=== PATIENT | female | born 1950 | race Caucasian/White ===

== ENCOUNTER 2019-07-15 07:45 | Inpatient (IN) ==
[2019-07-11 16:46] LABS: Basophils # (Auto) 0.04 K/mcL (0.00-0.30); Basophils % (Auto) 0.4 % (0.0-2.0); Eosinophils # (Auto) 0.47 K/mcL (0.00-0.70); Eosinophils % (Auto) 4.6 % (0.0-7.0); Granulocytes % (Auto) 72.7 % (38.0-78.0); Hematocrit 30.8 % (34.1-44.9); Hemoglobin 8.8 g/dL (11.2-15.7); Lymphocytes % (Auto) 13.7 % (15.5-49.0); Mean Cell Volume 79.6 fL (80.0-100.0); Mean Corpuscular HGB Conc 28.6 g/dL (31.0-36.0); Mean Platelet Volume 8.7 fL (7.4-10.4); Monocytes # (Auto) 0.88 K/mcL (0.10-0.90); Monocytes % (Auto) 8.6 % (1.0-12.0); Platelet Count 594 K/mcL (140-440); RBC 3.87 M/mcL (3.59-5.38); Red Cell Distribution Width 17.7 % (11.5-14.5); WBC 10.2 K/mcL (4.50-11.00)
[2019-07-11 17:03] LABS: ALT/SGPT 7 U/l (0-40); AST/SGOT 30 U/l (0-37); Albumin 3.4 gm/dL (3.2-5.2); Albumin/Globulin Ratio 0.9 (1.0-2.3); Alkaline Phosphatase 88 U/L (39-117); Bilirubin,Total 0.2 mg/dL (0.0-1.0); Blood Urea Nitrogen 23 mg/dl (8-23); C-Reactive Protein 1.9 mg/dl (0.0-0.8); Calcium 9.3 mg/dl (8.6-10.4); Carbon Dioxide 25 mmol/L (22-30); Chloride 99 mmol/L (96-108); Globulin 3.7 gm/dL (2.2-3.7); Glomerular Filtration Rate 106; Glucose 89 mg/dL (70-105)
[~2019-07-15 07:45] MED LIST: IPRATROPIUM/ALBUTEROL 3 ML AMPUL.NEB NEB PRN; SCOPOLAMINE 1 PATCH PATCH TOPICAL PRN; ceFAZolin 2 GM in DEXTROSE 5% IN WATER 50 ML IV SCH
[2019-07-15] MEDS ORDERED: KETAMINE 100 MG/ML ML IV ONE (09:05)
[2019-07-15] MEDS ORDERED: LIDOCAINE HCL/PF 100 MG/5 ML SYRINGE IV ONE (09:05)
[2019-07-15] MEDS ORDERED: DEXAMETHASONE 10 MG/ML VIAL IV ONE (09:05)
[2019-07-15] MEDS ORDERED: MIDAZOLAM 2 MG/2 ML VIAL IV ONE (09:05)
[2019-07-15] MEDS ORDERED: PROPOFOL 200 MG/20 ML VIAL IV ONE (09:05)
[2019-07-15] MEDS ORDERED: ONDANSETRON 4 MG/2 ML VIAL IV ONE (09:05)
[2019-07-15] MEDS ORDERED: fentaNYL 100 MCG/2 ML VIAL IV ONE (09:05)
[2019-07-15] MEDS ORDERED: GLYCOPYRROLATE 0.2 MG/ML VIAL IV ONE (09:05)
[2019-07-15] MEDS ORDERED: BACITRACIN TOPICAL OINT 15 GM TUBE TOPICAL ONE (10:04)
[2019-07-15] MEDS ORDERED: IPRATROPIUM/ALBUTEROL 3 ML AMPUL.NEB NEB PRN (10:22)
[2019-07-15] MEDS ORDERED: fentaNYL 100 MCG/2 ML VIAL IV PRN (10:22)
[2019-07-15] MEDS ORDERED: ONDANSETRON 4 MG/2 ML VIAL IV PRN ×2 (10:22→16:53)
[2019-07-15] MEDS ORDERED: MEPERIDINE 25 MG/ML SYRINGE IV PRN (10:22)
[2019-07-15] MEDS ORDERED: ACETAMINOPHEN 750 MG/75 ML BOTTLE IV ONE (10:28)
[2019-07-15] MEDS ORDERED: LACTATED RINGERS 1,000 ML IV SCH (10:30)
--- NOTE | 2019-07-15 10:44 | Brief Operative Note ---
Date of procedure: 07/15/19 Pre-op diagnosis: Grade IV sacral ulcer Post-op diagnosis: same Procedure: Excision grade IV pressure ulcer with resection of skin, bone, fascia Bilateral gluteus flap closure of sacral ulcer Grafts/Implants: No Anesthesia: GETA Findings: Grade IV sacral ulcer down to sacral bone. No gross infection Complications: none Surgeon: Go Foster Estimated blood loss (cc): 100 Specimens Removed/Pathology: other (Culture of sacral wound post irrigation sent to micro) Condition: stable Disposition: PACU
[2019-07-15] MEDS ORDERED: METHYLENE BLUE 50 MG/10 ML AMPUL INJ ONE (10:47)
[2019-07-15] MEDS: MUPIROCIN OINT 2% 22GM NARES SCH ×2 (14:40→21:34)
[2019-07-15] MEDS ORDERED: HYDROcodone/APAP 5/325MG TABLET PO PRN (16:53)
[2019-07-15] MEDS ORDERED: HYDROmorphone 2 MG/ML VIAL IV PRN (16:53)
[2019-07-15] MEDS ORDERED: ACETAMINOPHEN 650 MG/65 ML BOTTLE IV PRN (16:53)
[2019-07-15] MEDS ORDERED: ACETAMINOPHEN 325 MG TABLET PO PRN (16:53)
[2019-07-15] MEDS ORDERED: ONDANSETRON 4 MG ODT TABLET SL PRN (16:53)
[2019-07-15] MEDS ORDERED: guaiFENesin/CODEINE 10 ML UDC PO PRN (16:53)
[2019-07-15] MEDS ORDERED: POLYETHYLENE GLYCOL 3350 17 GM PACKET PO PRN (16:53)
[2019-07-15] MEDS ORDERED: MELATONIN 3 MG TABLET PO PRN (16:53)
--- NOTE | 2019-07-15 16:56 | Internal Medicine Consult Note ---
Medical - CN: [facility] - Data of Consult Consult date: 07/15/19 Primary Care Provider: Miguel Chu Family Provider: Elham - Consult Narrative Reason for consult: Management of medical issues History of present illness: Ms. Lewis is a 69 year old F with a history of T6 paraplegia with a blood grade 4 sacral pressure ulcer and underwent excision of sacral pressure ulcer with resection of skin and subcutaneous fat fascia and bone. Procedure performed by Dr. Ghanshyam Foster. Postprocedure hospitalist service was consulted for management of medical issues and antibiotic selection. Intraoperative cultures were sent. She was positive for MRSA in naris and was started on cefazolin preop. Patient was evaluated in the postoperative phase in stable state. She is alert oriented denies any active distress or pain. She endorses to injury with subsequent paraplegia since 1983. She developed decubitus ulceration around 2009 and has intermittently gotten worse requiring drainage and wound care. She normally follows up with a primary care physician Dr. Lizarraga at [place]. Patient has an extensive family who lives close by. She has adequate social support. Patient denies fever, chills, chest pain, headache, photophobia. Review of systems A 10 point review system was performed and is negative except was cussed above CC: Go Foster Medical - CN: [facility] Medical history: T6 paraplegia Recurrent decubitus ulcers Medical - CN: Meds Home Medications Medication Instructions Recorded Confirmed Type Calcium Carbonate/Vitamin D3 1 each PO DAILY 07/11/19 07/11/19 History [Calcium 600-Vit D3 400 Tablet] Calcium Polycarbophil [Fibercon] 1 tab PO DAILY 07/11/19 07/11/19 History Cranberry Fruit Extract [Cranberry] 200 mg PO QID 07/11/19 07/11/19 History Methenamine Hippurate [Hiprex] 1 gm PO QID 07/11/19 07/11/19 History Multivitamin,Therapeutic [Thera] 1 each PO DAILY 07/11/19 07/11/19 History Oxybutynin Chloride [Ditropan] 5 mg PO QID 07/11/19 07/11/19 History Macrobid 100 mg PO BID 07/15/19 07/15/19 History Allergies Allergy/AdvReac Type Severity Reaction Status Date / Time egg [EGG] Allergy Unknown Unknown Verified 07/15/19 08:34 Medical - CN: Exam - Constitutional Vitals: Temp Pulse Resp BP Pulse Ox 97.7 F 84 18 90/54 98 07/15/19 16:27 07/15/19 16:27 07/15/19 16:27 07/15/19 16:27 07/15/19 16:27 General appearance: no acute distress Exam: Alert oriented head normocephalic Oral cavity dry No ear nose discharge Eye movement symmetrical No lymphadenopathy S1-S2 regular rhythm, diminished breath sounds bases Abdomen soft nontender Lower extremity no sinus clubbing no joint swelling Decubitus postoperative dressing Skin no suspicious lesion Psych alert cooperative Neuro baseline paraplegia T6 with lower extremity motor sensory deficit Medical - CN: Result - Labs CBC & Chem 7: 07/16/19 05:45 07/16/19 05:45 Medical - CN: A/P - Narrative A/P Narrative: * Sacral decubitus ulcer stage IV status post resection of skin bone fascia along with bilateral gluteus flap closure of sacral ulcer-managed by surgery. Postoperative care as per surgery * Cellulitis-continue antibiotic coverage including vancomycin/Zosyn and de- escalate based on intraoperative cultures * Full code * Prophylaxis heparin Plan * For antibiotic coverage * Postoperative care per orthopedics * De-escalate antibiotics based on culture sensitivities * Frequent turning/wound care/nutrition support * Physical therapy * Case management coordinate SNF transfer for continued postoperative care/wound management
[2019-07-15] MEDS ORDERED: VANCOMYCIN PER PHARMACY IV SCH (17:00)
--- NOTE | 2019-07-15 17:03 | Operative Note ---
DATE OF OPERATION: 07/15/2019 PREOPERATIVE DIAGNOSIS: Grade IV sacral pressure ulcer. POSTOPERATIVE DIAGNOSIS: Grade IV sacral pressure ulcer. PROCEDURE PERFORMED: Excision of a sacral pressure ulcer with resection of skin, subcutaneous fat, fascia and bone. Additional procedure is elevation of bilateral gluteus muscular flaps for closure of soft tissue over the sacrum. SURGEON: Go Govea M.D. EARLY CHILDHOOD TEACHER ASSISTANT: EMILIE Tee student. ANESTHESIA: General. ESTIMATED BLOOD LOSS: 100 mL. COMPLICATIONS: None. DRAINS: Two 7 mm KIRSTEN drains were placed. SPECIMENS: Post-irrigation wound culture was obtained of the sacral wound and bone. INDICATIONS: The patient is an otherwise healthy female who had a very large right ischial pressure sore, which was treated surgically just under 3 months ago. She had a smaller one over the sacral area which we elected to excise and close, and it looked like it was getting deeper. Patient healed uneventfully from the ischial sore but was having a multitude of problems with care of the sacral wound. The wound never fully healed. It continued to break down further and finally eroded down to the sacral bone. We are looking at changing pressure surfaces for the patient at home. We are going to plan to reclose this wound and get her healed before infection and other comorbidities set in. Operative treatment is indicated. DESCRIPTION OF PROCEDURE: The patient was identified in the holding area where the planned procedure was discussed with her. She wished to proceed and consented freely, and 2 grams of Ancef were given IV. She was brought into the operating room. General anesthesia was induced with an LMA tube, and she was placed somewhat prone, slightly left lateral on the operating table. Her dressings were removed and the entire buttock and perineal area were prepped with Betadine and draped out sterilely. The ulcer was noted to be about a 2.5 to 3 cm in width and about 4 cm in length. The entire ulcer bed was painted with isosulfan blue dye, and incision lines were drawn around the entire ulcer to completely remove it. Incision was thus made through the skin and the subcutaneous fat. Electrocautery was used to remove the entire ulcer opening. The base of the wound was extensively curetted out with uterine curettes and all obvious blue stain was removed using rongeurs. The wounds were irrigated out with a couple liters of sterile saline irrigation and the final check for the adequacy of resection was performed. The last 1000 mL of irrigation was used and then a post-irrigation culture of the bone was taken with a clean rongeur and sent off for microbiology. The wounds were quite clean. There was good hemostasis. Rather than close the wounds primarily, I elected to elevate the right gluteus jeremiah muscle towards the midline. This was freed up from the overlying skin and dissected using electrocautery and advanced towards the midline. The advancement was just barely over the midline. I elected to elevate the opposite side as well since I did not have enough coverage for tension-free muscle closure over the exposed sacral bone. Having been content with the muscle advancement and adequacy of closure, a final check for hemostasis was made. A drain was placed into the deep space wound exiting via separate stab incision on the right hip. The drain was secured with 3-0 nylon and then the muscle repair was performed approximating the right and left gluteus muscle flaps. Having been content with complete muscle coverage over the sacral bone, the skin was then closed using multiple interrupted dermal sutures of 0 Monocryl. Prior to complete closure, a second drain was placed between the muscle and the skin space. This drain was also secured with 3-0 nylon. The skin itself was then closed with multiple horizontal mattress and simple sutures of 3-0 nylon with multiple surgical clips on the skin. The wounds were then washed free of debris. Bacitracin was applied. Bacitracin and a drain sponge were placed over the drain sites. The patient was then rolled supine onto a hospital bed. She was extubated and awakened in the operating room and taken over to the recovery room in stable condition. There were no complications. Sponge and needle counts were correct. The patient tolerated the procedure well. AMRY:juany Job ID: [id number] Doc ID: [id number] Go Foster MD
[2019-07-15] MEDS: OXYBUTYNIN CHLORIDE 5 MG TABLET PO SCH ×2 (17:45→21:04)
[2019-07-15] MEDS: PIPERACILLIN SODIUM/TAZOBACTAM 3.375 GM in DEXTROSE 5% IN WATER 50 ML IV SCH ×2 (18:05→23:40)
[2019-07-15] MEDS: VANCOMYCIN 750 MG in 0.9 % SODIUM CHLORIDE 250 ML IV SCH (18:24)
[2019-07-15] MEDS: SENNOSIDES/DOCUSATE SODIUM 1 TAB TABLET PO SCH (21:04)
[2019-07-15] MEDS: DOCUSATE SODIUM 100 MG CAPSULE PO SCH (21:04)
[2019-07-15] MEDS: 0.9 % SODIUM CHLORIDE 10 ML SYRINGE IV SCH (21:05)
[2019-07-15] MEDS: HEPARIN 5,000 UNIT/ML VIAL SQ SCH (21:06)
[2019-07-15] MEDS: BACITRACIN TOPICAL OINT 15 GM TUBE TOPICAL SCH (21:34)
[2019-07-16] MEDS: 0.9 % SODIUM CHLORIDE 10 ML SYRINGE IV SCH ×3 (06:04→20:55)
[2019-07-16] MEDS: PIPERACILLIN SODIUM/TAZOBACTAM 3.375 GM in DEXTROSE 5% IN WATER 50 ML IV SCH ×4 (06:05→23:59)
[2019-07-16 06:47] LABS: Hematocrit 24.5 % (34.1-44.9); Hemoglobin 7.3 g/dL (11.2-15.7); Mean Cell Volume 77.3 fL (80.0-100.0); Mean Corpuscular HGB Conc 29.8 g/dL (31.0-36.0); Mean Platelet Volume 8.5 fL (7.4-10.4); Platelet Count 417 K/mcL (140-440); RBC 3.17 M/mcL (3.59-5.38); Red Cell Distribution Width 17.6 % (11.5-14.5); WBC 10.2 K/mcL (4.50-11.00)
[2019-07-16 07:19] LABS: Bilirubin,Direct < 0.2 mg/dL (0.0-0.3); Bilirubin,Total < 0.2 mg/dL (0.0-1.0); Chloride 104 mmol/L (96-108)
[2019-07-16 07:22] LABS: ALT/SGPT < 5 U/l (0-40); AST/SGOT 25 U/l (0-37); Albumin 2.9 gm/dL (3.2-5.2); Albumin/Globulin Ratio 0.8 (1.0-2.3); Alkaline Phosphatase 74 U/L (39-117); Blood Urea Nitrogen 19 mg/dl (8-23); Calcium 8.5 mg/dl (8.6-10.4); Carbon Dioxide 24 mmol/L (22-30); Globulin 3.5 gm/dL (2.2-3.7); Glomerular Filtration Rate 106; Glucose 108 mg/dL (70-105); Lactate Dehydrogenase 159 U/L (94-250); Phosphorous 3.2 mg/dL (2.7-4.5); Triglycerides 110 mg/dl (<150); Uric Acid 1.8 mg/dL (2.5-8.0)
[2019-07-16] MEDS: MUPIROCIN OINT 2% 22GM NARES SCH ×2 (08:21→20:55)
[2019-07-16 09:08] LABS: Anisocytosis 1+ (NONE SEEN); Hypochromasia 2+ (NONE SEEN); Lymphocytes % 14 % (15-49); Monocytes % (Manual) 7 % (1-12); Platelet Estimate INCREASED (NORMAL); RBC Fragments RARE (NONE SEEN); RBC Morphology ABNORM (NORMAL); Segmented Neutrophils % 79 % (38-78)
[2019-07-16] MEDS: OXYBUTYNIN CHLORIDE 5 MG TABLET PO SCH ×4 (09:21→20:54)
[2019-07-16] MEDS: HEPARIN 5,000 UNIT/ML VIAL SQ SCH ×2 (09:21→20:55)
[2019-07-16] MEDS: DOCUSATE SODIUM 100 MG CAPSULE PO SCH ×2 (09:21→20:54)
[2019-07-16] MEDS: MULTIVIT,THER IRON,CA,FA & MIN 1 TABLET PO SCH (09:21)
[2019-07-16] MEDS: VANCOMYCIN 750 MG in 0.9 % SODIUM CHLORIDE 250 ML IV SCH (09:22)
[2019-07-16] MEDS: BACITRACIN TOPICAL OINT 15 GM TUBE TOPICAL SCH ×2 (09:22→20:55)
--- NOTE | 2019-07-16 17:21 | Internal Med Progress Note ---
Medical - PN: Subj Patient information: Note initiated : 07/16/19 at 5:19 pm Service Date, if different from initiated Date: [] Patient: Juli Lewis 69 y/o F admitted on for Debride, Close Grade IV Sacral Pressure Ulcer,. Chief Complaint: [] Interval history: Ms. Lewis is a 69 year old F with a history of T6 paraplegia with a blood grade 4 sacral pressure ulcer and underwent excision of sacral pressure ulcer with resection of skin and subcutaneous fat fascia and bone. Procedure performed by Dr. Ghanshyam Foster. Postprocedure hospitalist service was consulted for management of medical issues and antibiotic selection. Intraoperative cultures were sent. She was positive for MRSA in naris and was started on cefazolin preop. Patient was evaluated in the postoperative phase in stable state. She is alert oriented denies any active distress or pain. She endorses to injury with subsequent paraplegia since 1983. She developed decubitus ulceration around 2009 and has intermittently gotten worse requiring drainage and wound care. She normally follows up with a primary care physician Dr. Lizarraga at [place]. Patient has an extensive family who lives close by. She has adequate social support. Patient denies fever, chills, chest pain, headache, photophobia. 07/16-patient doing well. Postop day 1. Doing well. No pain fever or concerns per staff. Cultures negative so far. De-escalate antibiotics in the next 24 hours. Continue PT OT/high-protein calorie supplements. - Constitutional Vitals: Vital Signs Temp Pulse Resp BP Pulse Ox 98.9 F 72 16 115/65 95 07/16/19 15:53 07/16/19 15:53 07/16/19 15:53 07/16/19 15:53 07/16/19 15:53 Period Temp Pulse Resp BP Sys/Merrill Pulse Ox Last 24 Hr 97.6 F-99 F 72-90 16-18 78-115/47-65 95-99 Intake and Output 07/16/19 07/16/19 07/16/19 05:59 13:59 21:59 Intake Total 350 1130 Output Total 337 317 Balance 13 1130 -317 Intake & Output: Intake & Output 07/16/19 07/16/19 07/16/19 05:59 13:59 21:59 Intake Total 350 1130 Output Total 337 317 Balance 13 1130 -317 Intake: IV 50 350 Zosyn 3.375 gm In Dextrose 5% 50 100 in Water 50 ml @ 100 mls/hr IV Q6H [facility] Rx#:[id number] Vancomycin 750 mg In Sodium 250 Chloride 0.9% 250 ml @ 250 mls/ hr IV Q24H [facility] Rx#:[id number] Oral 300 780 Output: Drainage 12 17 KIRSTEN A 2 2 KIRSTEN B 10 15 Urine Catheter Amount 325 300 Other: Meal Lunch Percent of Meal Consumed 100% Feeding Ability Independent Urine Appearance Clear Uretheral (Amaya) Clear Urine Color Dark Yellow Uretheral (Amaya) Pale Urine Odor Normal General appearance: no acute distress Exam: Alert oriented Nonlabored breathing No anxiety Nondistended abdomen Hypo/anesthesia T6 below Medical - PN: Obj Da - Labs CBC & Chem 7: 07/16/19 05:45 07/16/19 05:45 Labs: Abnormal Lab Results 07/16/19 07/16/19 05:45 05:45 RBC 3.17 L Hgb 7.3 L Hct 24.5 L MCV 77.3 L MCH 23.0 L MCHC 29.8 L RDW 17.6 H Seg Neutrophils % 79 H Lymphocytes % 14 L RBC Morphology Abnorm A Hypochromasia 2+ A Anisocytosis 1+ A RBC Fragments Rare A Creatinine 0.4 L Glucose 108 H Uric Acid 1.8 L Calcium 8.5 L Albumin 2.9 L Albumin/Globulin Ratio 0.8 L Meds: Medications Acetaminophen (Tylenol) 650 mg PO Q4-6HP PRN; Protocol PRN Reason: Per Pain Protocol/Fever > 101 Hydrocodone Bitart/Acetaminophen ([place] 5/325mg) 0 tab PO Q4HP PRN; Protocol PRN Reason: Per Pain Protocol Bacitracin (Bacitracin Topical Oint) 1 dose TOPICAL BID [facility] Last Admin: 07/16/19 09:22 Dose: 1 dose Documented by: Bisacodyl (Dulcolax) 10 mg [place] Q2-3DAYS PRN PRN Reason: Constipation Docusate Sodium (Colace) 100 mg PO BID [facility] Last Admin: 07/16/19 09:21 Dose: 100 mg Documented by: Guaifenesin/Codeine Phosphate (Robitussin Ac) 10 ml PO Q4HP PRN PRN Reason: Cough Heparin Sodium (Porcine) (Heparin) 5,000 unit SQ Q12 [facility] Last Admin: 07/16/19 09:21 Dose: 5,000 unit Documented by: Hydromorphone HCl (Dilaudid) 0 mg IV Q4HP PRN; Protocol PRN Reason: Per Pain Protocol Acetaminophen (Ofirmev) 650 mg in 65 mls @ 130 mls/hr IV Q6HP PRN; Protocol PRN Reason: Per Pain Protocol/Fever > 101 Piperacillin Sod/Tazobactam (Sod 3.375 gm/ Dextrose) 50 mls @ 100 mls/hr IV Q6H [facility]; Protocol Last Infusion: 07/16/19 13:01 Dose: Infused Documented by: Vancomycin HCl 750 mg/ Sodium (Chloride) 250 mls @ 250 mls/hr IV Q24H [facility] Last Infusion: 07/16/19 10:22 Dose: Infused Documented by: Iron Carb/Multivit/[place]/Folic Acid (Multivitamin W/Minerals) 1 tab PO DAILY [facility] Last Admin: 07/16/19 09:21 Dose: 1 tab Documented by: Melatonin (Melatonin 3mg Tablet) 3 mg PO HSP PRN PRN Reason: Insomnia Mupirocin (Bactroban Oint 2%) 1 dose NARES BID [facility] Last Admin: 07/16/19 08:21 Dose: 1 dose Documented by: Ondansetron HCl (Zofran Odt) 4 mg SL Q4-6HP PRN; Protocol PRN Reason: Nausea And Vomiting Ondansetron HCl (Zofran) 4 mg IV Q4-6HP PRN; Protocol PRN Reason: Nausea And Vomiting Oxybutynin Chloride (Ditropan) 5 mg PO QID [facility] Last Admin: 07/16/19 12:31 Dose: 5 mg Documented by: Methenamine Hippurate [Hiprex] 1 Gm Tab 1 dose PO QID [facility] Last Admin: 07/16/19 13:32 Dose: 1 dose Documented by: Polyethylene Glycol (Miralax) 17 gm PO DAILYP PRN PRN Reason: Constipation Scopolamine (Transderm-Scop) 1 patch TOPICAL PREOP PRN PRN Reason: Nausea And Vomiting Senna/Docusate Sodium (Senna Plus Tablet) 1 tab PO HS [facility] Last Admin: 07/15/19 21:04 Dose: 1 tab Documented by: Sodium Chloride (Saline Flush) 10 ml IV Q8 [facility] Last Admin: 07/16/19 13:39 Dose: 10 ml Documented by: Vancomycin HCl (Vancomycin Per Pharmacy) 1 order IV UD [facility]; Protocol Medical - PN: A/P - Time Spent With Patient Total time spent is greater than 50% in coordination of care (as documented) at patient's floor/unit and/or counseling patient: 15 - 24 minutes - Narrative A/P Narrative: * Sacral decubitus ulcer stage IV status post resection of skin bone fascia along with bilateral gluteus flap closure of sacral ulcer-postop day 1. Managed by surgery. Postoperative care as per surgery * [id number] vancomycin/Zosyn based on cultures in 24 hours * Full code * Prophylaxis heparin Plan * De-escalate antibiotics based on culture sensitivities in 24-hour * Postop care as per surgery * Frequent turning/wound care/nutrition support * Continue physical therapy * Case management coordinate SNF transfer for continued postoperative care/wound management
[2019-07-16] MEDS: SENNOSIDES/DOCUSATE SODIUM 1 TAB TABLET PO SCH (20:54)
[2019-07-17] MEDS: BISACODYL 10 MG SUPP.RECT PR PRN (05:36)
[2019-07-17] MEDS: 0.9 % SODIUM CHLORIDE 10 ML SYRINGE IV SCH ×3 (05:36→21:47)
[2019-07-17] MEDS: PIPERACILLIN SODIUM/TAZOBACTAM 3.375 GM in DEXTROSE 5% IN WATER 50 ML IV SCH (05:36)
[2019-07-17 07:30] LABS: Hemoglobin 7.4 g/dL (11.2-15.7); Mean Cell Volume 77.4 fL (80.0-100.0); Mean Corpuscular HGB Conc 29.6 g/dL (31.0-36.0); Platelet Count 452 K/mcL (140-440); RBC 3.23 M/mcL (3.59-5.38); Red Cell Distribution Width 17.7 % (11.5-14.5); WBC 10.1 K/mcL (4.50-11.00)
[2019-07-17 07:46] LABS: Bilirubin,Direct < 0.2 mg/dL (0.0-0.3); Bilirubin,Total < 0.2 mg/dL (0.0-1.0); Chloride 104 mmol/L (96-108)
[2019-07-17 07:50] LABS: ALT/SGPT < 5 U/l (0-40); AST/SGOT 27 U/l (0-37); Albumin 2.8 gm/dL (3.2-5.2); Albumin/Globulin Ratio 0.9 (1.0-2.3); Alkaline Phosphatase 72 U/L (39-117); Blood Urea Nitrogen 19 mg/dl (8-23); Calcium 8.1 mg/dl (8.6-10.4); Carbon Dioxide 24 mmol/L (22-30); Globulin 3.2 gm/dL (2.2-3.7); Glomerular Filtration Rate 106; Glucose 93 mg/dL (70-105); Lactate Dehydrogenase 183 U/L (94-250); Phosphorous 3.3 mg/dL (2.7-4.5); Triglycerides 136 mg/dl (<150); Uric Acid 1.5 mg/dL (2.5-8.0)
[2019-07-17 08:17] LABS: Anisocytosis 1+ (NONE SEEN); Eosinophils % (Manual) 7 % (0-7); Lymphocytes % 6 % (15-49); Microcytosis 1+ (NONE SEEN); Monocytes % (Manual) 8 % (1-12); Myelocytes % 1 % (0-0); Platelet Estimate INCREASED (NORMAL); RBC Morphology ABNORM (NORMAL); Segmented Neutrophils % 78 % (38-78)
[2019-07-17] MEDS: BACITRACIN TOPICAL OINT 15 GM TUBE TOPICAL SCH ×2 (08:21→21:45)
[2019-07-17] MEDS: MUPIROCIN OINT 2% 22GM NARES SCH ×2 (08:21→21:48)
[2019-07-17] MEDS: OXYBUTYNIN CHLORIDE 5 MG TABLET PO SCH ×4 (08:59→21:45)
[2019-07-17] MEDS: DOCUSATE SODIUM 100 MG CAPSULE PO SCH ×2 (08:59→21:45)
[2019-07-17] MEDS: MULTIVIT,THER IRON,CA,FA & MIN 1 TABLET PO SCH (08:59)
[2019-07-17] MEDS: HEPARIN 5,000 UNIT/ML VIAL SQ SCH ×2 (09:00→21:46)
[2019-07-17] MEDS: VANCOMYCIN 750 MG in 0.9 % SODIUM CHLORIDE 250 ML IV SCH (10:46)
--- NOTE | 2019-07-17 11:09 | Progress Note ---
DATE OF VISIT 07/16/2019 HISTORY: The patient is postop day #1, status post closure of complex sacral wound with exposed sacral bone. She is doing very well. She has no problems with pain control. She has no spasms. PHYSICAL EXAM: VITAL SIGNS: Stable. She is currently afebrile. Temperature is 98.8. SACRUM: Incision is clean and dry. There is no evidence of infection. There is less redness around the incisional site since being placed being placed on the low air loss bed as right after surgery she was placed on a hospital bed. Her drains are functioning. URINE OUTPUT: She put out 37 mL in the last 24 hours. LABORATORY DATA: Hemoglobin and hematocrit is a little low; hemoglobin is 7.3 from a preop of 8.8. She is not actively bleeding. Her cultures are no growth and the Gram stain demonstrated no obvious organisms. IMPRESSION: Doing well postoperative day #1. PLAN: We will continue to monitor her skin incision and flap. We will work on her nutrition and follow up her cultures, and once the cultures are negative, we can switch her off IV antibiotics and either put on oral antibiotics for possibly completely discontinue them. She was given a chance to ask questions. I will plan to see her back tomorrow. MARY:daniella Job ID: [id number] Doc ID: [id number] Go Foster MD
[2019-07-17] MEDS ORDERED: MENTHOL/ZINC OXIDE OINT.TOP 113 GM TOPICAL PRN (12:43)
--- NOTE | 2019-07-17 18:34 | Internal Med Progress Note ---
Medical - PN: Subj Patient information: Note initiated : 07/17/19 at 6:30 pm Service Date, if different from initiated Date: [] Patient: Juli Leiws 69 y/o F admitted on for Debride, Close Grade IV Sacral Pressure Ulcer,. Chief Complaint: [] Interval history: Ms. Lewis is a 69 year old F with a history of T6 paraplegia with a blood grade 4 sacral pressure ulcer and underwent excision of sacral pressure ulcer with resection of skin and subcutaneous fat fascia and bone. Procedure performed by Dr. Ghanshyam Foster. Postprocedure hospitalist service was consulted for management of medical issues and antibiotic selection. Intraoperative cultures were sent. She was positive for MRSA in naris and was started on cefazolin preop. Patient was evaluated in the postoperative phase in stable state. She is alert oriented denies any active distress or pain. She endorses to injury with subsequent paraplegia since 1983. She developed decubitus ulceration around 2009 and has intermittently gotten worse requiring drainage and wound care. She normally follows up with a primary care physician Dr. Lizarraga at [place]. Patient has an extensive family who lives close by. She has adequate social support. Patient denies fever, chills, chest pain, headache, photophobia. 07/16-patient doing well. Postop day 1. Doing well. No pain fever or concerns per staff. Cultures negative so far. De-escalate antibiotics in the next 24 hours. Continue PT OT/high-protein calorie supplements. 07/17-patient doing well. Ongoing wound care. Developed rash on extensor aspect of forearm and arm bilaterally. Antibiotics discontinued as no evidence of infection and negative wound cultures. Continue PT OT/wound care. Discharge planning per case management likely in 24 hours to SNF. No overnight fever chills. Amaya draining clear urine. - Constitutional Vitals: Vital Signs Temp Pulse Resp BP Pulse Ox 98.0 F 87 16 96/43 97 07/17/19 16:00 07/17/19 16:00 07/17/19 16:00 07/17/19 16:00 07/17/19 16:00 Period Temp Pulse Resp BP Sys/Merrill Pulse Ox Last 24 Hr 98.0 F-99.0 F 73-94 16-24 77-96/43-58 95-97 Intake and Output 07/17/19 07/17/19 07/17/19 05:59 13:59 21:59 Intake Total 137 565 2028 Output Total 985 520 Balance -460 410 680 Intake & Output: Intake & Output 07/17/19 07/17/19 07/17/19 05:59 13:59 21:59 Intake Total 367 288 0874 Output Total 985 520 Balance -460 410 680 Intake: IV 50 50 Zosyn 3.375 gm In Dextrose 5% 50 50 in Water 50 ml @ 100 mls/hr IV Q6H [facility] Rx#:[id number] Oral 528 130 0480 Output: Drainage 20 KIRSTEN A 5 KIRSTEN B 15 Drainage 10 KIRSTEN A 1 KIRSTEN B 9 Urine Catheter Amount 975 500 Other: Meal Breakfast Dinner Percent of Meal Consumed 100% 75% Feeding Ability Independent Independent Urine Appearance Clear Sediment Urine Color Bright Yellow Pale Urine Odor Normal Normal Stool Size Small Stool Color Brown Stool Consistency Dry and Hard Hilda # Voids 1 # Bowel Movements 1 General appearance: no acute distress Exam: Alert oriented Nonlabored breathing Raised erythematous urticarial rash on the extensor aspect of left forearm and arm. No anxiety Medical - PN: Obj Da - Labs CBC & Chem 7: 07/17/19 05:35 07/17/19 05:35 Labs: Abnormal Lab Results 07/17/19 07/17/19 07/16/19 05:35 05:35 05:45 RBC 3.23 L Hgb 7.4 L Hct 25.0 L MCV 77.4 L MCH 22.9 L MCHC 29.6 L RDW 17.7 H Plt Count 452 H Seg Neutrophils % Lymphocytes % 6 L Myelocytes % 1 H RBC Morphology Abnorm A Hypochromasia Anisocytosis 1+ A Microcytosis 1+ A RBC Fragments Creatinine 0.4 L 0.4 L Glucose 108 H Uric Acid 1.5 L 1.8 L Calcium 8.1 L 8.5 L Albumin 2.8 L 2.9 L Albumin/Globulin Ratio 0.9 L 0.8 L 07/16/19 05:45 RBC 3.17 L Hgb 7.3 L Hct 24.5 L MCV 77.3 L MCH 23.0 L MCHC 29.8 L RDW 17.6 H Plt Count Seg Neutrophils % 79 H Lymphocytes % 14 L Myelocytes % RBC Morphology Abnorm A Hypochromasia 2+ A Anisocytosis 1+ A Microcytosis RBC Fragments Rare A Creatinine Glucose Uric Acid Calcium Albumin Albumin/Globulin Ratio Meds: Medications Acetaminophen (Tylenol) 650 mg PO Q4-6HP PRN; Protocol PRN Reason: Per Pain Protocol/Fever > 101 Hydrocodone Bitart/Acetaminophen ([place] 5/325mg) 0 tab PO Q4HP PRN; Protocol PRN Reason: Per Pain Protocol Bacitracin (Bacitracin Topical Oint) 1 dose TOPICAL BID [facility] Last Admin: 07/17/19 08:21 Dose: 1 dose Documented by: Bisacodyl (Dulcolax) 10 mg [place] Q2-3DAYS PRN PRN Reason: Constipation Last Admin: 07/17/19 05:36 Dose: 10 mg Documented by: Calamine/Phenol (Calmoseptine) 1 dose TOPICAL DAILYP PRN PRN Reason: Skin Irritation Docusate Sodium (Colace) 100 mg PO BID [facility] Last Admin: 07/17/19 08:59 Dose: 100 mg Documented by: Guaifenesin/Codeine Phosphate (Robitussin Ac) 10 ml PO Q4HP PRN PRN Reason: Cough Heparin Sodium (Porcine) (Heparin) 5,000 unit SQ Q12 [facility] Last Admin: 07/17/19 09:00 Dose: 5,000 unit Documented by: Hydromorphone HCl (Dilaudid) 0 mg IV Q4HP PRN; Protocol PRN Reason: Per Pain Protocol Acetaminophen (Ofirmev) 650 mg in 65 mls @ 130 mls/hr IV Q6HP PRN; Protocol PRN Reason: Per Pain Protocol/Fever > 101 Iron Carb/Multivit/Authorization Manager/Folic Acid (Multivitamin W/Minerals) 1 tab PO DAILY [facility] Last Admin: 07/17/19 08:59 Dose: 1 tab Documented by: Melatonin (Melatonin 3mg Tablet) 3 mg PO HSP PRN PRN Reason: Insomnia Mupirocin (Bactroban Oint 2%) 1 dose NARES BID [facility] Last Admin: 07/17/19 08:21 Dose: 1 dose Documented by: Ondansetron HCl (Zofran Odt) 4 mg SL Q4-6HP PRN; Protocol PRN Reason: Nausea And Vomiting Ondansetron HCl (Zofran) 4 mg IV Q4-6HP PRN; Protocol PRN Reason: Nausea And Vomiting Oxybutynin Chloride (Ditropan) 5 mg PO QID [facility] Last Admin: 07/17/19 17:31 Dose: 5 mg Documented by: Methenamine Hippurate [Hiprex] 1 Gm Tab 1 dose PO QID [facility] Last Admin: 07/17/19 17:31 Dose: 1 dose Documented by: Polyethylene Glycol (Miralax) 17 gm PO DAILYP PRN PRN Reason: Constipation Scopolamine (Transderm-Scop) 1 patch TOPICAL PREOP PRN PRN Reason: Nausea And Vomiting Senna/Docusate Sodium (Senna Plus Tablet) 1 tab PO HS [facility] Last Admin: 07/16/19 20:54 Dose: 1 tab Documented by: Sodium Chloride (Saline Flush) 10 ml IV Q8 [facility] Last Admin: 07/17/19 17:31 Dose: 10 ml Documented by: Medical - PN: A/P - Time Spent With Patient Total time spent is greater than 50% in coordination of care (as documented) at patient's floor/unit and/or counseling patient: 15 - 24 minutes - Narrative A/P Narrative: * Sacral decubitus ulcer stage IV status post resection of skin bone fascia along with bilateral gluteus flap closure of sacral ulcer-postop day 2. Managed by surgery. Continue postoperative care as per surgery. Anticipate discharge in 24 hours * Cellulitis-negative tissue cultures. DC antibiotics. * Acute drug reaction with rash-use as needed antihistamines. DC antibiotics. * Full code * Prophylaxis heparin Plan * DC antibiotics * Postop care as per surgery * Frequent offloading/wound care/nutrition support * Continue physical therapy * Possible discharge to SNF in 24 hours
[2019-07-17] MEDS: SENNOSIDES/DOCUSATE SODIUM 1 TAB TABLET PO SCH (21:45)
[2019-07-18 06:31] LABS: Hematocrit 24.5 % (34.1-44.9); Hemoglobin 7.3 g/dL (11.2-15.7); Mean Corpuscular HGB Conc 29.8 g/dL (31.0-36.0); Mean Platelet Volume 8.3 fL (7.4-10.4); Platelet Count 381 K/mcL (140-440); RBC 3.18 M/mcL (3.59-5.38); Red Cell Distribution Width 17.7 % (11.5-14.5); WBC 9.2 K/mcL (4.50-11.00)
[2019-07-18 06:59] LABS: ALT/SGPT 5 U/l (0-40); AST/SGOT 30 U/l (0-37); Albumin 2.8 gm/dL (3.2-5.2); Albumin/Globulin Ratio 0.9 (1.0-2.3); Alkaline Phosphatase 75 U/L (39-117); Bilirubin,Direct < 0.2 mg/dL (0.0-0.3); Bilirubin,Total < 0.2 mg/dL (0.0-1.0); Blood Urea Nitrogen 15 mg/dl (8-23); Calcium 8.4 mg/dl (8.6-10.4); Carbon Dioxide 25 mmol/L (22-30); Chloride 105 mmol/L (96-108); Globulin 3.1 gm/dL (2.2-3.7); Glucose 94 mg/dL (70-105); Lactate Dehydrogenase 145 U/L (94-250); Phosphorous 3.2 mg/dL (2.7-4.5); Triglycerides 157 mg/dl (<150)
[2019-07-18 07:13] LABS: Glomerular Filtration Rate 116
[2019-07-18 08:00] LABS: Anisocytosis 1+ (NONE SEEN); Eosinophils % (Manual) 6 % (0-7); Lymphocytes % 12 % (15-49); Microcytosis 1+ (NONE SEEN); Monocytes % (Manual) 5 % (1-12); Platelet Estimate NORMAL (NORMAL); RBC Fragments OCC (NONE SEEN); RBC Morphology ABNORM (NORMAL); Segmented Neutrophils % 77 % (38-78)
[2019-07-18] MEDS: DOCUSATE SODIUM 100 MG CAPSULE PO SCH ×2 (09:24→21:09)
[2019-07-18] MEDS: MULTIVIT,THER IRON,CA,FA & MIN 1 TABLET PO SCH (09:24)
[2019-07-18] MEDS: MUPIROCIN OINT 2% 22GM NARES SCH ×2 (09:24→21:10)
[2019-07-18] MEDS: OXYBUTYNIN CHLORIDE 5 MG TABLET PO SCH ×4 (09:24→21:09)
[2019-07-18] MEDS: 0.9 % SODIUM CHLORIDE 10 ML SYRINGE IV SCH ×3 (09:25→21:10)
[2019-07-18] MEDS: BACITRACIN TOPICAL OINT 15 GM TUBE TOPICAL SCH ×2 (09:25→21:10)
[2019-07-18] MEDS: HEPARIN 5,000 UNIT/ML VIAL SQ SCH ×2 (09:26→21:09)
--- NOTE | 2019-07-18 18:27 | Consultation ---
DATE OF CONSULTATION: 07/17/2019 DATE OF FOLLOWUP: 07/17/2019 REASON FOR ADMISSION: Mrs. Lewis is now 2 days status post debridement of a sacral pressure sore with gluteus flap closure. She is doing very well clinically. She is not having any pain or discomfort. She is no longer woozy from her anesthesia. PHYSICAL EXAMINATION: VITAL SIGNS: Her T-max is 99. Her vital signs are stable. Her blood pressure is good. She has good oxygenation on room air. HEAD AND NECK: Unremarkable. SKIN: Her perineum demonstrates a fair amount of maceration or at least premaceration. The skin is little bit damp, it is soft. The surgical incision site is intact but the skin appears somewhat damp. In looking at the T.R.A.C pad, there was staining of the pad distal to the incision suggesting that this is urine that is leaking, apparently she is having some leakage of urine. LABORATORY DATA: Her cultures demonstrate no growth to date. Her hemoglobin and hematocrit are stable with a hematocrit of about 25. IMPRESSION: The patient is doing well. We have several ongoing problems. We have some issues with hygiene and apparently she has had a catheter change in the past. She has had problems with leaking. The nurses are doing an excellent job at changing the bandage. It does not appear that there is much urine that is causing the maceration. I think it is more of the skin, possibly how she was lying on her bed at home. I am concerned about the maceration and will try some zinc oxide and see if that help toughen the tissues and protect some of the maceration and potential for future breakdown. Her drains are putting out about 10 and 15 mL in the last 24 hours, they are clear. Her cultures demonstrate no growth. She developed a significant rash which I forgot to mention in her exam above. Initially, it was noted on her arms and seems to spread more in her arms and also on her legs and trunk. Dr. Mooney has stopped her antibiotics and will check her cultures since currently she has had no growth from them and will trend it. The patient was given a chance to ask questions and we will reassess her wounds tomorrow and see how she is doing with some of the local skin care protection. MARY:jesus Job ID: [id number] Doc ID: [id number] Go Foster MD
[2019-07-18] MEDS: SENNOSIDES/DOCUSATE SODIUM 1 TAB TABLET PO SCH (21:09)
--- NOTE | 2019-07-18 21:28 | Progress Note ---
DATE OF VISIT 07/18/2019 FOLLOWUP NOTE DATE OF FOLLOWUP: 07/18/2019 HISTORY OF PRESENT ILLNESS: The patient is now postoperative day #3 status post excision of large grade IV pressure sore in the sacral area and flap closure. She continues to do well. She is certainly much more awake and alert. She is moving around in her bed quite a bit better and independently. PHYSICAL EXAMINATION: VITAL SIGNS: Today, her temperature is more normal. She is completely afebrile. Her T-max is 98.3, heart rate is 74, respirations are 16. HEAD AND NECK: Otherwise unchanged. SKIN: In looking at her buttock and perineal areas, the skin is much better and there is less dampness to it, is nice, soft and dry. The incisions for the most part intact but there is some superficial separation in the mid portion where the moisés are. The wound does not gape open at that point. There is no bleeding. There is no evidence of infection. In looking at her skin, her rash is about the same, maybe a little bit better today. Cultures demonstrate still no growth to date, so we will continue holding off on antibiotics at this point. Her drains are putting out about 1 to 2 mL on 1 drain and 8 mL and the other 1 for the last 24 hours. IMPRESSION: Stable female, doing well post-flap. We talked extensively about and what to do with her wounds with her skin in the perineal area. She has anemia that was partially surgically induced. I do not believe that she needs any blood transfusions, but she has a lot of ongoing issues that make it difficult for her to go directly home from the hospital. She has got a very attentive and loving family but she is about 70 miles away from here and the nearest hospital is not far but they are not experienced in flaps and flap management. I think it would be best and safest for her to be at a longterm facility here in [place] at least for the first couple of weeks. We can get the moisés out, we can get the drain care initiated. Once the drains and the moisés come out, it would be easier to manage for her at home with the family because of the leakage of urine and the potential for maceration, it is just going to take a lot of attention. Patient and her agree with the plan and will continue to work towards this. We will monitor her cultures and will consider what to do with the gapping of some of the moisés on her back. ADDENDUM: The patient was rechecked a couple of hours later. I thought about the options for healing and I think it is best since she does not have sensation to remove some of the moisés, clean the wound and then resecure it. I explained to the patient that if the skin edges are more secure then it will heal faster, there is less manipulation as she will have side to side wound movement with re-closure. She agreed with the plan and consented freely. The middle 5 or 6 moisés were removed. The deep sutures were still intact and over this 3 to 4 cm area, the wounds were then prepped with Betadine and then using a #10 blade, the surgical wound was completely refreshened. All of the edges were gently scraped with the blade and then Betadine was once again applied into the wound. Surgical staple was then used to resuture the incision giving her much more solid closure. Having content with the procedure, the wounds were washed free of debris and bacitracin was applied. The patient was given a chance to ask questions and she tolerated this well. I will see her tomorrow and reassess her and see how she is doing. MARY:jesus Job ID: [id number] Doc ID: [id number] Go KUMAR
[2019-07-19] MEDS: BISACODYL 10 MG SUPP.RECT PR PRN (05:05)
[2019-07-19] MEDS: 0.9 % SODIUM CHLORIDE 10 ML SYRINGE IV SCH ×2 (05:45→13:32)
[2019-07-19 06:42] LABS: Hematocrit 27.4 % (34.1-44.9); Hemoglobin 8.1 g/dL (11.2-15.7); Mean Cell Volume 77.2 fL (80.0-100.0); Mean Corpuscular HGB Conc 29.6 g/dL (31.0-36.0); Mean Platelet Volume 8.4 fL (7.4-10.4); Platelet Count 455 K/mcL (140-440); RBC 3.55 M/mcL (3.59-5.38); Red Cell Distribution Width 17.6 % (11.5-14.5); WBC 9.1 K/mcL (4.50-11.00)
[2019-07-19 07:11] LABS: ALT/SGPT 15 U/l (0-40); AST/SGOT 65 U/l (0-37); Albumin/Globulin Ratio 0.9 (1.0-2.3); Alkaline Phosphatase 98 U/L (39-117); Bilirubin,Direct < 0.2 mg/dL (0.0-0.3); Bilirubin,Total < 0.2 mg/dL (0.0-1.0); Blood Urea Nitrogen 15 mg/dl (8-23); Carbon Dioxide 25 mmol/L (22-30); Chloride 101 mmol/L (96-108); Globulin 3.5 gm/dL (2.2-3.7); Glucose 108 mg/dL (70-105); Lactate Dehydrogenase 187 U/L (94-250); Phosphorous 3.5 mg/dL (2.7-4.5); Triglycerides 162 mg/dl (<150); Uric Acid 2.2 mg/dL (2.5-8.0)
[2019-07-19 07:13] LABS: Glomerular Filtration Rate 106
[2019-07-19 07:33] LABS: Anisocytosis 1+ (NONE SEEN); Eosinophils % (Manual) 6 % (0-7); Hypochromasia 1+ (NONE SEEN); Lymphocytes % 14 % (15-49); Microcytosis 1+ (NONE SEEN); Monocytes % (Manual) 3 % (1-12); Platelet Estimate INCREASED (NORMAL); RBC Morphology ABNORM (NORMAL); Rouleaux PRESENT (NONE SEEN); Segmented Neutrophils % 77 % (38-78)
[2019-07-19] MEDS: MULTIVIT,THER IRON,CA,FA & MIN 1 TABLET PO SCH (09:29)
[2019-07-19] MEDS: OXYBUTYNIN CHLORIDE 5 MG TABLET PO SCH ×2 (09:29→13:12)
[2019-07-19] MEDS: BACITRACIN TOPICAL OINT 15 GM TUBE TOPICAL SCH (09:30)
[2019-07-19] MEDS: HEPARIN 5,000 UNIT/ML VIAL SQ SCH (09:30)
[2019-07-19] MEDS: MUPIROCIN OINT 2% 22GM NARES SCH (09:30)
[2019-07-19] MEDS: DOCUSATE SODIUM 100 MG CAPSULE PO SCH (09:30)
--- NOTE | 2019-07-19 12:24 | Discharge Summary ---
Medical - DS: Prov Patient information: Note initiated : 07/19/19 at 12:21 pm Service Date, if different from initiated Date: [] Patient: Juli Lewis 69 y/o F admitted on for Debride, Close Grade IV Sacral Pressure Ulcer,. Chief Complaint: [] Discharge date: 07/19/19 Primary care physician: Miguel Cuh Consults: 07/15/19 08:41 Consult to Physician [CONS] Routine Comment: Consulting Provider: Jason Mooney Reason For Exam: Physician to Consult 07/19/19 11:12 Consult to Physician [CONS] Routine Comment: Consulting Provider: Tanner Lopez Reason For Exam: Physician to Consult Medical - DS: Meds - Discharge Medications Prescriptions: Bacitracin Topical Oint 1 dose TOPICAL ONCE #1 tube Prescription Printed Active and Home Medications: Home Medications Calcium Carbonate/Vitamin D3 [Calcium 600-Vit D3 400 Tablet] 1 each PO DAILY 07/11/19 [History Confirmed 07/11/19 Last Taken Unknown] Calcium Polycarbophil [Fibercon] 1 tab PO DAILY 07/11/19 [History Confirmed 07/11/19 Last Taken Unknown] Cranberry Fruit Extract [Cranberry] 200 mg PO QID 07/11/19 [History Confirmed 07/11/19 Last Taken Unknown] Methenamine Hippurate [Hiprex] 1 gm PO QID 07/11/19 [History Confirmed 07/11/19 Last Taken Unknown] Multivitamin,Therapeutic [Thera] 1 each PO DAILY 07/11/19 [History Confirmed 07/11/19 Last Taken Unknown] Oxybutynin Chloride [Ditropan] 5 mg PO QID 07/11/19 [History Confirmed 07/11/19 Last Taken Unknown] Macrobid 100 mg PO BID 07/15/19 [History Confirmed 07/15/19 Last Taken 07/14/19 19:00] Medical - DS: Hosp Hospital Course: Discharge diagnosis * Sacral decubitus ulcer stage IV status post resection of skin bone fascia along with bilateral gluteus flap closure of sacral ulcer-postop day 3. Managed by surgery. Continue postoperative care as per surgery.discharge to SNF with wound care as per surgery * CellulitisAround decubitus-negative tissue cultures. DC antibiotics. * Acute drug reaction with rash- resolving with as needed antihistamines. off antibiotics. Discharging to SNF. Brief hospital course Ms. Lewis is a 69 year old F with a history of T6 paraplegia with a blood g rade 4 sacral pressure ulcer and underwent excision of sacral pressure ulcer with resection of skin and subcutaneous fat fascia and bone. Procedure performed by Dr. Ghanshyam Foster. Postprocedure hospitalist service was consulted for management of medical issues and antibiotic selection. Intraoperative cultures were sent. She was positive for MRSA in naris and was started on cefazolin preop. Patient was evaluated in the postoperative phase in stable state. She is alert oriented denies any active distress or pain. She endorses to injury with subsequent paraplegia since 1983. She developed decubitus ulceration around 2009 and has intermittently gotten worse requiring drainage and wound care. She normally follows up with a primary care physician Dr. Lizarraga at [place]. Patient has an extensive family who lives close by. She has adequate social support. Patient denies fever, chills, chest pain, headache, photophobia. 07/16-patient doing well. Postop day 1. Doing well. No pain fever or concerns per staff. Cultures negative so far. De-escalate antibiotics in the next 24 hours. Continue PT OT/high-protein calorie supplements. 07/17-patient doing well. Ongoing wound care. Developed rash on extensor aspect of forearm and arm bilaterally. Antibiotics discontinued as no evidence of infection and negative wound cultures. Continue PT OT/wound care. Discharge planning per case management likely in 24 hours to SNF. No overnight fever chills. Amaya draining clear urine. 07/18- doing well, No overnight events. Await Dc to SNF 07/19- dc to [facility], No F/C/N, ongoing wound care As per directions of surgery. Discharge diagnosis: . - Time Spent with Patient Total time spent providing and/or coordinating discharge services: Greater than 30 minutes Medical - DS: Exam - Constitutional Vitals: Vital Signs Temp Pulse Resp BP Pulse Ox 07/19/19 11:00 97.6 F 68 18 95 07/19/19 08:00 18 07/19/19 07:00 98.1 F 78 18 118/63 96 07/19/19 03:59 98.2 F 68 16 116/58 98 07/19/19 00:00 98.3 F 82 18 108/62 98 07/18/19 20:00 98.3 F 82 16 112/60 98 07/18/19 15:49 98.5 F 84 16 82/48 95 Intake and Output 07/18/19 07/19/19 07/19/19 21:59 05:59 13:59 Intake Total 1065 400 Output Total 567 870 Balance 498 -470 Intake: Oral 1065 400 Output: Drainage 17 20 KIRSTEN A 2 15 KIRSTEN B 15 5 Urine Catheter Amount 550 850 Other: Meal Dinner Percent of Meal Consumed 75% Feeding Ability Independent Urine Appearance Sediment Cloudy Clear Mucous Threads Sediment Mucous Threads Uretheral (Amaya) Cloudy Clear Sediment Mucous Threads Urine Color Bright Yellow Bright Yellow Pale Uretheral (Amaya) Bright Yellow Bright Yellow Urine Odor Normal Normal Normal Uretheral (Amaya) Normal Normal Weight 124 lb 9.6 oz Medical - DS: Data Labs on day of discharge: Labs from last 24 hours 07/19/19 07/19/19 05:30 05:30 WBC 9.1 RBC 3.55 L Hgb 8.1 L Hct 27.4 L MCV 77.2 L MCH 22.8 L MCHC 29.6 L RDW 17.6 H Plt Count 455 H MPV 8.4 Total Counted 100 Seg Neutrophils % 77 Band Neutrophils % Not Reportable Lymphocytes % 14 L Monocytes % (Manual) 3 Eosinophils % (Manual) 6 Platelet Estimate Increased RBC Morphology Abnorm A Hypochromasia 1+ A Anisocytosis 1+ A Microcytosis 1+ A Rouleaux Present A Sodium 138 Potassium 4.5 Chloride 101 Carbon Dioxide 25 Anion Gap 12.0 BUN 15 Creatinine 0.4 L GFR Calculation 106 Glucose 108 H Uric Acid 2.2 L Calcium 9.0 Phosphorus 3.5 Magnesium 2.1 Total Bilirubin < 0.2 Direct Bilirubin < 0.2 GGT 28 AST 65 H ALT 15 Alkaline Phosphatase 98 Lactate Dehydrogenase 187 Total Protein 6.5 Albumin 3.0 L Globulin 3.5 Albumin/Globulin Ratio 0.9 L Triglycerides 162 H Preliminary micro results at discharge 07/15/19 09:57 Anaerobic Culture - Preliminary Buttock - Not Given Medical - DS: A/P - Patient/Caregiver Discharge Instructions Activity: increase activity as tolerated Diet: Regular Diet Additional Instructions: Discharge Instructions: Patient has hx of MRSA, has been on decolonization protocol since 07/15 and needs to be on for 1 more days. Bacitracin oint bid to bilateral nares and Chlorahexidine bathing for one more day. Patient may be retested in one week with new nasal swab to see if she has cleared. Strip KIRSTEN drains x 2 and record output every shift. Amaya cath to down drain (18F) at all times(changed today), Chronic use due to wounds. Prior to wound care patient did straight cath's at home Turn and reposition every 2 hours. Keep HOB < [address] Foster will be by this evening in case you have any further needs for orders. Activity: increase activity as tolerated, PT for upper extremity strengthing Diet: Regular Diet Prescriptions: Bacitracin Topical Oint 1 dose TOPICAL ONCE #1 tube Prescription Printed Other Amb Orders: Physical Therapy at Discharge - General Location: None Selected - Follow up Plan Follow up with: Go Foster MD [Physician] - (Dr. Foster will be coming by the facility to follow up with patient. ) Disposition: Xfer SNF Prognosis: Fair Rehab Potential: Fair I certify that the patient requires SNF services: Yes Overall status at discharge: patient is progressing back to baseline
--- NOTE | 2019-07-19 12:26 | Internal Med Progress Note ---
Medical - PN: Subj Patient information: Note initiated : 07/18/19 at 12:24 pm Service Date, if different from initiated Date: [] Patient: Juli Lewis 69 y/o F admitted on for Debride, Close Grade IV Sacral Pressure Ulcer,. Chief Complaint: [] Interval history: Ms. Lewis is a 69 year old F with a history of T6 paraplegia with a blood grade 4 sacral pressure ulcer and underwent excision of sacral pressure ulcer with resection of skin and subcutaneous fat fascia and bone. Procedure performed by Dr. Ghanshyam Foster. Postprocedure hospitalist service was consulted for management of medical issues and antibiotic selection. Intraoperative cultures were sent. She was positive for MRSA in naris and was started on cefazolin preop. Patient was evaluated in the postoperative phase in stable state. She is alert oriented denies any active distress or pain. She endorses to injury with subsequent paraplegia since 1983. She developed decubitus ulceration around 2009 and has intermittently gotten worse requiring drainage and wound care. She normally follows up with a primary care physician Dr. Lizarraga at [place]. Patient has an extensive family who lives close by. She has adequate social support. Patient denies fever, chills, chest pain, headache, photophobia. 07/16-patient doing well. Postop day 1. Doing well. No pain fever or concerns per staff. Cultures negative so far. De-escalate antibiotics in the next 24 hours. Continue PT OT/high-protein calorie supplements. 07/17-patient doing well. Ongoing wound care. Developed rash on extensor aspect of forearm and arm bilaterally. Antibiotics discontinued as no evidence of infection and negative wound cultures. Continue PT OT/wound care. Discharge planning per case management likely in 24 hours to SNF. No overnight fever chil ls. Amaya draining clear urine. 07/18- doing well, No O/n events, Ongoing wound care per surgery, Rash improving on as needed antihistamines, Off Abx - Constitutional Vitals: Vital Signs Temp Pulse Resp BP Pulse Ox 97.6 F 68 18 118/63 95 07/19/19 11:00 07/19/19 11:00 07/19/19 11:00 07/19/19 07:00 07/19/19 11:00 Period Temp Pulse Resp BP Sys/Merrill Pulse Ox Last 24 Hr 97.6 F-98.5 F 68-84 16-18 82-118/48-63 95-98 Intake and Output 07/18/19 07/19/19 07/19/19 21:59 05:59 13:59 Intake Total 1065 400 Output Total 567 870 Balance 498 -470 Weight 124 lb 9.6 oz Intake & Output: Intake & Output 07/18/19 07/19/19 07/19/19 21:59 05:59 13:59 Intake Total 1065 400 Output Total 567 870 Balance 498 -470 Weight 124 lb 9.6 oz Intake: Oral 1065 400 Output: Drainage 17 20 KIRSTEN A 2 15 KIRSTEN B 15 5 Urine Catheter Amount 550 850 Other: Meal Dinner Percent of Meal Consumed 75% Feeding Ability Independent Urine Appearance Sediment Cloudy Clear Mucous Threads Sediment Mucous Threads Uretheral (Amaya) Cloudy Clear Sediment Mucous Threads Urine Color Bright Yellow Bright Yellow Pale Uretheral (Amaya) Bright Yellow Bright Yellow Urine Odor Normal Normal Normal Uretheral (Amaya) Normal Normal General appearance: no acute distress Exam: Alert No anxiety WErythematous rash improving Medical - PN: Obj Da - Labs CBC & Chem 7: 07/19/19 05:30 07/19/19 05:30 Labs: Abnormal Lab Results 07/19/19 07/19/19 07/18/19 05:30 05:30 05:30 RBC 3.55 L Hgb 8.1 L Hct 27.4 L MCV 77.2 L MCH 22.8 L MCHC 29.6 L RDW 17.6 H Plt Count 455 H Lymphocytes % 14 L Myelocytes % RBC Morphology Abnorm A Hypochromasia 1+ A Anisocytosis 1+ A Microcytosis 1+ A Rouleaux Present A RBC Fragments Creatinine 0.4 L 0.3 L Glucose 108 H Uric Acid 2.2 L 2.0 L Calcium 8.4 L AST 65 H Albumin 3.0 L 2.8 L Albumin/Globulin Ratio 0.9 L 0.9 L Triglycerides 162 H 157 H 07/18/19 07/17/19 07/17/19 05:30 05:35 05:35 RBC 3.18 L 3.23 L Hgb 7.3 L 7.4 L Hct 24.5 L 25.0 L MCV 77.0 L 77.4 L MCH 23.0 L 22.9 L MCHC 29.8 L 29.6 L RDW 17.7 H 17.7 H Plt Count 452 H Lymphocytes % 12 L 6 L Myelocytes % 1 H RBC Morphology Abnorm A Abnorm A Hypochromasia Anisocytosis 1+ A 1+ A Microcytosis 1+ A 1+ A Rouleaux RBC Fragments Occ A Creatinine 0.4 L Glucose Uric Acid 1.5 L Calcium 8.1 L AST Albumin 2.8 L Albumin/Globulin Ratio 0.9 L Triglycerides Meds: Medications Acetaminophen (Tylenol) 650 mg PO Q4-6HP PRN; Protocol PRN Reason: Per Pain Protocol/Fever > 101 Hydrocodone Bitart/Acetaminophen ([place] 5/325mg) 0 tab PO Q4HP PRN; Protocol PRN Reason: Per Pain Protocol Bacitracin (Bacitracin Topical Oint) 1 dose TOPICAL BID [facility] Last Admin: 07/19/19 09:30 Dose: 1 dose Documented by: Bisacodyl (Dulcolax) 10 mg MT Q2-3DAYS PRN PRN Reason: Constipation Last Admin: 07/19/19 05:05 Dose: 10 mg Documented by: Calamine/Phenol (Calmoseptine) 1 dose TOPICAL DAILYP PRN PRN Reason: Skin Irritation Last Admin: 07/18/19 21:10 Dose: 1 applic Documented by: Docusate Sodium (Colace) 100 mg PO BID [facility] Last Admin: 07/19/19 09:30 Dose: 100 mg Documented by: Guaifenesin/Codeine Phosphate (Robitussin Ac) 10 ml PO Q4HP PRN PRN Reason: Cough Heparin Sodium (Porcine) (Heparin) 5,000 unit SQ Q12 [facility] Last Admin: 07/19/19 09:30 Dose: 5,000 unit Documented by: Hydromorphone HCl (Dilaudid) 0 mg IV Q4HP PRN; Protocol PRN Reason: Per Pain Protocol Acetaminophen (Ofirmev) 650 mg in 65 mls @ 130 mls/hr IV Q6HP PRN; Protocol PRN Reason: Per Pain Protocol/Fever > 101 Iron Carb/Multivit/Hunter/Folic Acid (Multivitamin W/Minerals) 1 tab PO DAILY [facility] Last Admin: 07/19/19 09:29 Dose: 1 tab Documented by: Melatonin (Melatonin 3mg Tablet) 3 mg PO HSP PRN PRN Reason: Insomnia Mupirocin (Bactroban Oint 2%) 1 dose NARES BID [facility] Last Admin: 07/19/19 09:30 Dose: 1 dose Documented by: Ondansetron HCl (Zofran Odt) 4 mg SL Q4-6HP PRN; Protocol PRN Reason: Nausea And Vomiting Ondansetron HCl (Zofran) 4 mg IV Q4-6HP PRN; Protocol PRN Reason: Nausea And Vomiting Oxybutynin Chloride (Ditropan) 5 mg PO QID [facility] Last Admin: 07/19/19 09:29 Dose: 5 mg Documented by: Methenamine Hippurate [Hiprex] 1 Gm Tab 1 dose PO QID [facility] Last Admin: 07/19/19 09:30 Dose: 1 dose Documented by: Polyethylene Glycol (Miralax) 17 gm PO DAILYP PRN PRN Reason: Constipation Senna/Docusate Sodium (Senna Plus Tablet) 1 tab PO HS [facility] Last Admin: 07/18/19 21:09 Dose: 1 tab Documented by: Sodium Chloride (Saline Flush) 10 ml IV Q8 [facility] Last Admin: 07/19/19 05:45 Dose: 10 ml Documented by: Medical - PN: A/P - Time Spent With Patient Total time spent is greater than 50% in coordination of care (as documented) at patient's floor/unit and/or counseling patient: 15 - 24 minutes - Narrative A/P Narrative: * Sacral decubitus ulcer stage IV status post resection of skin bone fascia along with bilateral gluteus flap closure of sacral ulcer-postop day 2. Managed by surgery. Continue wound care as per surgery. * Cellulitis-negative tissue cultures. DC antibiotics. * Acute drug reaction with rash- improving * Full code * Prophylaxis heparin Plan * constinue antihistamines * Wound care as per surgery * Frequent offloading/wound care/nutrition support * Continue PT/nutrition support * Possible discharge to SNF in [place]
== END 2019-07-19 15:20 | DRG 574 ==
LOC: SUR 07:45 → MEDSUR 07:46 → SSSU 07:46 → SUR 07-19 15:20 → MEDSUR 07-22 14:45
PROVIDERS: ADMIT Plastic Surgery; ATTEND Internal Medicine